=== PATIENT | male | born 1940 | race Caucasian/White ===

== ENCOUNTER → 2023-09-01 15:37 | Outpatient (REF) | payer MEDICARE, OTHER, SELFPAY | LOC: HWRAD 15:37 | PROVIDERS: ATTENDING PHYSICIAN Physician Assistant Medical; FAMILY PHYSICIAN Internal Medicine | DX: N40.1 Benign prostatic hyperplasia with lower urinary tract symptoms (principal) | CPT/HCPCS: 76770 ==

== ENCOUNTER → 2023-09-13 10:30 | Outpatient (REF) | payer MEDICARE, OTHER, SELFPAY ==
[2023-09-13 11:28] LABS: % Basophils 1.2 % (0-2); % Eosinophils 2.3 % (0-6); % Immature Granulocytes 0.4 % (0-0.5); % Lymphocytes 16.6 % (20.5-51.1); % Monocytes 6.4 % (1.7-9.3); % Neutrophils 73.1 % (42.2-75.2); Absolute Basophils 0.1 10^3/uL (0-0.2); Absolute Eosinophils 0.2 10^3/uL (0-0.7); Absolute Lymphocytes 1.4 10^3/uL (1.2-3.4); Absolute Monocytes 0.6 10^3/uL (0.1-0.6); Absolute Neutrophils 6.3 10^3/uL (1.4-6.5); Hematocrit 40.7 % (39.0-52.0); Hemoglobin 14.1 g/dL (13.0-18.0); Mean Corp Hgb Conc. 34.6 g/dL (33.0-37.0); Mean Corpuscular Hgb 32.1 pg (27.0-31.0); Mean Corpuscular Volume 92.7 fL (80.0-94.0); Mean Platelet Volume 8.4 fL (7.4-10.4); Nucleated Red Blood Cells % 0 % (-); Platelet Count 276 10^3/uL (130-400); Red Blood Cell Count 4.39 10^6/uL (4.70-6.10); Red Cell Dist. Width 13.4 % (11.5-14.5); White Blood Cell Count 8.6 10^3/uL (4.8-10.8)
[2023-09-13 13:23] LABS: ALT (SGPT) 28 U/L (0-50); AST (SGOT) 24 U/L (17-59); Alkaline Phosphatase 53 U/L (38-126); Blood Urea Nitrogen 24 mg/dl (9-20); Calcium 9.6 mg/dl (8.4-10.2); Carbon Dioxide 27 mmol/L (22-30); Chloride 103 mmol/L (98-107); Glucose 102 mg/dl (70-99); HDL Cholesterol 53 mg/dl; LDL Cholesterol, Calculated 65 mg/dl; Potassium 4.2 mmol/L (3.5-5.1); Sodium 138 mmol/L (135-145); Total Bilirubin 0.7 mg/dl (0.2-1.3); Total Cholesterol 135 mg/dl (50-199); Total Protein 6.5 g/dl (6.3-8.2); Triglyceride 86 mg/dl (10-149); Very Low Density Lipoprotein 17 mg/dl (0-30); eGFR > 60.00
[2023-09-13 13:40] LABS: Free T4 1.77 ng/dl (0.78-2.19); Vitamin D, 25-OH*** 99.8 ng/mL (30-80)
[2023-09-13 13:54] LABS: PSA, Total - Screen 0.69 ng/ml (0.0-4.0); TSH 1.06 uIU/ml (0.47-4.68)
[2023-09-13 14:06] LABS: Glycohemoglobin (HgbA1c) 6.2 % (4.0-5.6)
[2023-09-13 14:12] LABS: Microalbumin, Random Urine 33.7 mg/dl (0.6-1.7); Microalbumin/creatinine Ratio 236.8 mg/g
[2023-09-13 15:13] LABS: Urine Albumin 1+ (Neg - Trace); Urine Bilirubin Negative (Negative); Urine Character Clear (Clear); Urine Color Yellow; Urine Glucose Negative (Negative); Urine Ketone Negative (Negative); Urine Leukocyte Negative (Negative); Urine Nitrite Negative (Negative); Urine Occult Blood Negative (Negative); Urine Urobilinogen Negative (Neg - 1+)
[2023-09-13 15:16] LABS: Urine Red Blood Cell 0-2 /HPF (0-2); Urine White Cell 0-2 /HPF (0-5)
== END ==
LOC: RAD 10:30
PROVIDERS: ATTENDING PHYSICIAN Internal Medicine Cardiovascular Disease; FAMILY PHYSICIAN Internal Medicine
DX: I48.0 Paroxysmal atrial fibrillation (principal); Z79.899 Other long term (current) drug therapy; R79.89 Other specified abnormal findings of blood chemistry; D64.9 Anemia, unspecified; R71.0 Precipitous drop in hematocrit; R79.81 Abnormal blood-gas level; I10 Essential (primary) hypertension; M19.90 Unspecified osteoarthritis, unspecified site; E11.29 Type 2 diabetes mellitus with other diabetic kidney complication; E05.00 Thyrotoxicosis with diffuse goiter without thyrotoxic crisis or storm; E78.2 Mixed hyperlipidemia; I25.10 Atherosclerotic heart disease of native coronary artery without angina pectoris; N40.0 Benign prostatic hyperplasia without lower urinary tract symptoms; N18.2 Chronic kidney disease, stage 2 (mild); I48.91 Unspecified atrial fibrillation; Z12.5 Encounter for screening for malignant neoplasm of prostate; E55.9 Vitamin D deficiency, unspecified
CPT/HCPCS: 36415; 71046; 80053; 80061; 81003; 81015; 82043; 82306; 82570; 83036; 84439; 84443; 85025; G0103

== ENCOUNTER → 2024-01-04 08:56 | Outpatient (REF) | payer MEDICARE, OTHER, SELFPAY ==
[2024-01-04 10:55] LABS: ALT (SGPT) 25 U/L (0-50); AST (SGOT) 28 U/L (17-59); Albumin 3.9 g/dl (3.5-5.0); Alkaline Phosphatase 47 U/L (38-126); Blood Urea Nitrogen 22 mg/dl (9-20); Calcium 9.4 mg/dl (8.4-10.2); Carbon Dioxide 27 mmol/L (22-30); Chloride 106 mmol/L (98-107); Glucose 107 mg/dl (70-99); HDL Cholesterol 45 mg/dl; LDL Cholesterol, Calculated 91 mg/dl; Potassium 4.5 mmol/L (3.5-5.1); Sodium 142 mmol/L (135-145); Total Bilirubin 0.6 mg/dl (0.2-1.3); Total Cholesterol 154 mg/dl (50-199); Total Protein 6.4 g/dl (6.3-8.2); Triglyceride 92 mg/dl (10-149); Very Low Density Lipoprotein 18 mg/dl (0-30); eGFR > 60.00
[2024-01-04 11:12] LABS: Glycohemoglobin (HgbA1c) 5.9 % (4.0-5.6)
[2024-01-04 11:36] LABS: Microalbumin, Random Urine 34.5 mg/dl (0.6-1.7); Microalbumin/creatinine Ratio 133.4 mg/g
== END ==
LOC: REG 08:56
PROVIDERS: ATTENDING PHYSICIAN Internal Medicine; FAMILY PHYSICIAN Internal Medicine Cardiovascular Disease
DX: E11.9 Type 2 diabetes mellitus without complications (principal); E78.2 Mixed hyperlipidemia
CPT/HCPCS: 36415; 80053; 80061; 82043; 82570; 83036

== ENCOUNTER → 2024-05-04 11:11 | Outpatient (REF) | payer MEDICARE, OTHER, SELFPAY ==
[2024-05-04 12:36] LABS: ALT (SGPT) 21 U/L (0-50); AST (SGOT) 24 U/L (17-59); Albumin 4.1 g/dl (3.5-5.0); Alkaline Phosphatase 40 U/L (38-126); Blood Urea Nitrogen 21 mg/dl (9-20); Calcium 9.5 mg/dl (8.4-10.2); Carbon Dioxide 26 mmol/L (22-30); Chloride 107 mmol/L (98-107); Glucose 105 mg/dl (70-99); HDL Cholesterol 50 mg/dl; LDL Cholesterol, Calculated 102 mg/dl; Potassium 4.3 mmol/L (3.5-5.1); Sodium 142 mmol/L (135-145); Total Bilirubin 0.5 mg/dl (0.2-1.3); Total Cholesterol 169 mg/dl (50-199); Total Protein 6.5 g/dl (6.3-8.2); Triglyceride 88 mg/dl (10-149); Very Low Density Lipoprotein 17 mg/dl (0-30); eGFR > 60.00
[2024-05-04 12:51] LABS: Microalbumin, Random Urine 31.4 mg/dl (0.6-1.7); Microalbumin/creatinine Ratio 184.9 mg/g
[2024-05-04 13:19] LABS: TSH 1.32 uIU/ml (0.47-4.68)
[2024-05-04 13:24] LABS: Glycohemoglobin (HgbA1c) 5.6 % (4.0-5.6)
== END ==
LOC: REG 11:11
PROVIDERS: ATTENDING PHYSICIAN Internal Medicine Cardiovascular Disease; FAMILY PHYSICIAN Internal Medicine
DX: E11.29 Type 2 diabetes mellitus with other diabetic kidney complication (principal); E78.2 Mixed hyperlipidemia; Z79.899 Other long term (current) drug therapy
CPT/HCPCS: 36415; 80053; 80061; 82043; 82570; 83036; 84443

== ENCOUNTER → 2024-06-19 14:54 | Outpatient (REF) | payer MEDICARE, OTHER, SELFPAY | LOC: PAVMRI 14:54 | PROVIDERS: ATTENDING PHYSICIAN Anesthesiology; FAMILY PHYSICIAN Internal Medicine | DX: M47.816 Spondylosis without myelopathy or radiculopathy, lumbar region (principal) | CPT/HCPCS: 72148 ==

== ENCOUNTER → 2024-07-03 15:31 | Outpatient (REF) | payer MEDICARE, OTHER, SELFPAY ==
[2024-07-05 22:39] LABS: PSA Total 1.2 ng/mL (0.0-4.0)
== END ==
LOC: REG 15:31
PROVIDERS: ATTENDING PHYSICIAN Urology; FAMILY PHYSICIAN Internal Medicine
DX: R35.0 Frequency of micturition (principal); N40.1 Benign prostatic hyperplasia with lower urinary tract symptoms; R35.1 Nocturia
CPT/HCPCS: 36415; 84153; 84154

== ENCOUNTER → 2024-10-13 12:07 | Outpatient (REF) | payer MEDICARE, OTHER, SELFPAY | LOC: RAD 12:07 | PROVIDERS: ATTENDING PHYSICIAN Internal Medicine Cardiovascular Disease; FAMILY PHYSICIAN Nurse Practitioner Family | DX: R05.1 Acute cough (principal); R09.89 Other specified symptoms and signs involving the circulatory and respiratory systems; J44.9 Chronic obstructive pulmonary disease, unspecified; Z79.899 Other long term (current) drug therapy | CPT/HCPCS: 71046 ==

== ENCOUNTER → 2024-10-17 11:45 | Outpatient (REF) | payer MEDICARE, OTHER, SELFPAY | LOC: RAD 11:45 | PROVIDERS: ATTENDING PHYSICIAN Internal Medicine Cardiovascular Disease; FAMILY PHYSICIAN Internal Medicine; OTHER PHYSICIAN Nurse Practitioner Family | DX: I48.0 Paroxysmal atrial fibrillation (principal); I49.3 Ventricular premature depolarization; M25.422 Effusion, left elbow | CPT/HCPCS: 73080; 93306 ==

== ENCOUNTER → 2024-10-26 10:08 | Outpatient (REF) | payer MEDICARE, OTHER, SELFPAY ==
[2024-10-26 11:35] LABS: Microalbumin, Random Urine 13.2 mg/dl (0.6-1.7); Microalbumin/creatinine Ratio 152.4 mg/g
[2024-10-26 11:43] LABS: ALT (SGPT) 17 U/L (0-50); AST (SGOT) 21 U/L (17-59); Albumin 3.9 g/dl (3.5-5.0); Alkaline Phosphatase 48 U/L (38-126); Blood Urea Nitrogen 23 mg/dl (9-20); Calcium 9.3 mg/dl (8.4-10.2); Carbon Dioxide 28 mmol/L (22-30); Chloride 106 mmol/L (98-107); Glucose 100 mg/dl (70-99); HDL Cholesterol 42 mg/dl; LDL Cholesterol, Calculated 83 mg/dl; Potassium 4.7 mmol/L (3.5-5.1); Sodium 141 mmol/L (135-145); Total Bilirubin 0.7 mg/dl (0.2-1.3); Total Cholesterol 140 mg/dl (50-199); Total Protein 6.4 g/dl (6.3-8.2); Triglyceride 75 mg/dl (10-149); Very Low Density Lipoprotein 15 mg/dl (0-30); eGFR > 60.00
[2024-10-26 12:13] LABS: Glycohemoglobin (HgbA1c) 5.9 % (4.0-5.6)
== END ==
LOC: REG 10:08
PROVIDERS: ATTENDING PHYSICIAN Internal Medicine Cardiovascular Disease; FAMILY PHYSICIAN Internal Medicine
DX: E11.29 Type 2 diabetes mellitus with other diabetic kidney complication (principal); E78.2 Mixed hyperlipidemia; Z79.899 Other long term (current) drug therapy
CPT/HCPCS: 36415; 80053; 80061; 82043; 82570; 83036; 84443

== ENCOUNTER 2025-02-19 10:09 | Outpatient (RCR) | payer MEDICARE, OTHER, SELFPAY | END 2025-02-19 23:59 | disposition home or self-care (01) | LOC: RPT 10:09 | PROVIDERS: ATTENDING PHYSICIAN Internal Medicine | DX: R26.89 Other abnormalities of gait and mobility (principal); Z73.6 Limitation of activities due to disability; R26.2 Difficulty in walking, not elsewhere classified; M54.50 Low back pain, unspecified; G89.29 Other chronic pain; Z91.81 History of falling | CPT/HCPCS: 97162; 97530 ==

== ENCOUNTER 2025-03-27 14:46 | Outpatient (RCR) | payer MEDICARE, OTHER, SELFPAY | END 2025-03-27 23:59 | disposition home or self-care (01) | LOC: RPT 14:46 | PROVIDERS: ATTENDING PHYSICIAN Internal Medicine | DX: R26.89 Other abnormalities of gait and mobility (principal); Z73.6 Limitation of activities due to disability; R26.2 Difficulty in walking, not elsewhere classified; M54.50 Low back pain, unspecified; G89.29 Other chronic pain; Z91.81 History of falling | CPT/HCPCS: 97110; 97112 ==

== ENCOUNTER 2025-04-20 09:19 | Outpatient (RCR) | payer MEDICARE, OTHER, SELFPAY | END 2025-04-20 23:59 | disposition home or self-care (01) | LOC: RPT 09:19 | PROVIDERS: ATTENDING PHYSICIAN Internal Medicine | DX: R26.89 Other abnormalities of gait and mobility (principal); Z73.6 Limitation of activities due to disability; R26.2 Difficulty in walking, not elsewhere classified; M54.50 Low back pain, unspecified; G89.29 Other chronic pain; Z91.81 History of falling | CPT/HCPCS: 97110; 97112 ==

== ENCOUNTER → 2025-05-02 11:40 | Outpatient (REF) | payer MEDICARE, OTHER, SELFPAY ==
[2025-05-02 13:31] LABS: Glycohemoglobin (HgbA1c) 5.6 % (4.0-5.9)
[2025-05-02 16:09] LABS: ALT (SGPT) 20 U/L (0-50); AST (SGOT) 21 U/L (17-59); Albumin 4.1 g/dl (3.5-5.0); Alkaline Phosphatase 42 U/L (38-126); Blood Urea Nitrogen 23 mg/dl (9-20); Calcium 9.3 mg/dl (8.4-10.2); Carbon Dioxide 28 mmol/L (22-30); Chloride 105 mmol/L (98-107); Glucose 105 mg/dl (70-99); HDL Cholesterol 47 mg/dl; LDL Cholesterol, Calculated 104 mg/dl; Potassium 4.3 mmol/L (3.5-5.1); Sodium 137 mmol/L (135-145); Total Protein 6.9 g/dl (6.3-8.2); Very Low Density Lipoprotein 17 mg/dl (0-30); eGFR > 60.00
[2025-05-02 16:17] LABS: Microalb - Urine Creatinine 114.000 mg/dl
[2025-05-02 16:20] LABS: Microalbumin, Random Urine 16.3 mg/dl (0.6-1.7)
== END ==
LOC: REG 11:40
PROVIDERS: ATTENDING PHYSICIAN Internal Medicine; OTHER PHYSICIAN Internal Medicine Cardiovascular Disease
DX: I10 Essential (primary) hypertension (principal); E11.29 Type 2 diabetes mellitus with other diabetic kidney complication
CPT/HCPCS: 36415; 80053; 80061; 82043; 82570; 83036